=== PATIENT | male | born 1970 | race Caucasian/White ===

== ENCOUNTER 2023-08-30 14:30 | Emergency (ER) | payer BC ==
[2023-08-30 14:41] VITALS: BMI 37.9
[2023-08-30] MEDS ORDERED: amLODIPine BESYLATE 2.5 MG TABLET (FP) ONE (16:09)
[2023-08-30] MEDS: amLODIPine BESYLATE 2.5 MG TABLET (FP) PO ONE (16:10)
[2023-08-30] MEDS ORDERED: amLODIPine BESYLATE 2.5 MG TABLET (FP) PO ONE (16:24)
[2023-08-30] MEDS ORDERED: LISINOPRIL 10 MG TABLET ONE (16:31)
[2023-08-30] MEDS: LISINOPRIL 10 MG TABLET PO ONE (16:33)
[2023-08-30 16:51] VITALS: BP 183/129; PULSE 98; RESP 16; TEMP 98.4
== END 2023-08-30 16:54 | disposition home or self-care (01) ==
LOC: JER 14:30
DX: I10 Essential (primary) hypertension (principal); F17.210 Nicotine dependence, cigarettes, uncomplicated; R51.9 Headache, unspecified; R10.9 Unspecified abdominal pain
CPT/HCPCS: 82962; 93005; 93010; 99284-25